=== PATIENT | female | born 1970 | race Caucasian/White ===

== ENCOUNTER → 2016-10-25 | Outpatient (CLI) | payer OTHER ==
[~2016-10-25] VITALS: Ht 154.9 cm; Wt 68.4 kg
[~2016-10-25] MED LIST: AMITRIPTYLINE H10 M1 PO; B-12250 MCG PO; CYCLOBENZAPRINE5 MG PO; CYMBALTA30 MG PO; DILAUDID 2 MG TA2 MG PO; DILAUDID2 M1 PO; GABAPENTIN100 MG PO; HYDROCODON-ACE1 EAC7 PO; HYDROCODON-ACE1 EACH PO; HYDROCODONE-AP1 EAC6 PO; IBUPROFEN 400400 M2 PO; MELOXICAM7.5 MG; MORPHINE SULFAT15 M3 PO; MULTIVITAMINS PO; NABUMETONE 750750 M1 PO; NEURONTIN 300300 M1 PO; NEURONTIN 300M300 M2 PO; NEURONTIN 400400 M1 PO; NEURONTIN600 MG PO; NORCO 5-325 TA1 EACH PO; TEGRETOL XR100 MG PO; TEGRETOL200 MG PO; TRAMADOL 50 MG50 MG PO; TRILEPTAL150 MG PO; TUMS PO; ZYRTEC10 M2 PO
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
[2016-10-25 09:25] VITALS: BP 121/59
== END ==
LOC: PAIN 06:48
DX: M54.16 Radiculopathy, lumbar region (principal); G03.9 Meningitis, unspecified

== ENCOUNTER → 2017-10-20 | Outpatient (CLI) | payer OTHER ==
[~2017-10-20] VITALS: Ht 154.9 cm; Wt 60.3 kg
[~2017-10-20] MED LIST changes: +LIPITOR10 MG PO; +METFORMIN HCL500 MG PO
--- NOTE | ~2017-10-20 | HPC ---
[facility] [place] [address] [address] [address] PAIN MANAGEMENT CONSULTATION Name: ANITA DIMAS [id number] Admission: 10/20/17 Attend Phys: Preston Casey DO Discharge: Date of : 66 Report #: [id number] THIS REPORT FOR: //name// CC: Yamil Casey DATE OF SERVICE: 10/20/2017 PAIN CLINIC NOTE HISTORY OF PRESENT ILLNESS: The patient is a very pleasant 47-year-old female, long treated for symptomatic lumbar radiculopathy status post decompressive laminectomy and neuropathic pain requiring complex medication management. She has spinal cord stimulator implanted in June 2011 which has helped with ongoing neuropathic pain. Gabapentin 600 mg 1 in the morning, half at noon, 1.5 at night, hydrocodone very rare use 5 mg tablets, dispensed 40, last visit on 09/09/2017, she still has several of these. We have always been cautious with the opiate analgesics due to history of ethanol abuse. She returns to pain clinic today noting she has had acute exacerbation of pain in the low back, right buttock, leg radiating to the groin and upper thigh. She denies antecedent trauma and overuse. She rates her pain at 6 presently and rates her pain up to a 10 on a VAS, exacerbated with walking, standing and sitting. PHYSICAL EXAMINATION: Shows a pleasant 47-year-old female, BMI is 25.1 kilograms per meter squared. Vital signs are stable. Markedly antalgic gait. Right Achilles reflex is absent, left is 1/4, patellar reflexes are symmetric. Grossly positive straight leg raise at 30 degrees on the right. Slight decreased plantar flexion. Decreased right hip flexion strength and right dorsiflexion strength. Passive rotation of the hip is unremarkable. MRI from 2010 prior to a spinal cord stimulator implant, but after last back surgery had noted recurrent disk at L5-S1 and prior partial laminectomy. ASSESSMENT: Symptomatic lumbar radiculopathy by clinical exam and history what appears to be an acute right L2-L3 radicular pain pattern. RECOMMENDATION: Lumbar epidural injection under fluoroscopy, right midline L2-L3. Will seek authorization for same. The patient has failed conservative therapy, she has taken ibuprofen 600 mg for 6 weeks. She has continued with water aerobics on a regular basis with no change in current pain. <ELECTRONICALLY SIGNED> By: Preston Casey DO 10/24/17 0710 [id number] Preston Casey DO /nt
[2017-10-20 12:43] VITALS: BP 108/81
== END ==
LOC: PAIN 06:56
DX: M54.16 Radiculopathy, lumbar region (principal); M54.5 Low back pain

== ENCOUNTER → 2017-10-27 | Outpatient (CLI) | payer OTHER ==
[~2017-10-27] VITALS: Ht 154.9 cm; Wt 60.8 kg
--- NOTE | ~2017-10-27 | HPC ---
[address] [address] PAIN MANAGEMENT CONSULTATION Name: ANITA DIMAS Room #: REG [facility].#: [id number] Admission: 10/27/17 Attend Phys: Preston Casey DO Discharge: Date of : 66 Report #: [id number] THIS REPORT FOR: //name// CC: Yamil Casey DATE OF SERVICE: 10/27/2017 The patient is a very pleasant 47-year-old female, prior seen in the pain clinic 10/20/2017. She had extensive lumbar decompression L3-L4 and L4-L5. She had ongoing right L2-L3 radicular pain pattern. Last visit on 10/20/2017, we sought authorization for epidural injection. The patient does have a spinal cord stimulator, implanted 2011. Returns to pain clinic for prior authorized epidural injection. She notes her subjective pain score is 8 on a VAS. Pain is in the low back, right anterior thigh. ASSESSMENT: Symptomatic lumbar radiculopathy status post decompression. PROCEDURE: Midline epidural steroid injection under fluoroscopy. PROCEDURE NOTE: After both written and informed consent to include risk of spinal cord damage, increased pain, weakness and dural puncture, the patient was taken to the fluoroscopy suite, placed in the prone position. After sterile prep and drape, a skin wheal with lidocaine was raised. A 22-gauge epidural Tuohy needle was inserted in the midline at L2-L3 with good loss to resistance. Negative aspiration for cerebrospinal fluid or blood was noted. Then 1 mL of Omnipaque under biplanar fluoroscopy showed good spread within the epidural space. This was followed with 80 mg of triamcinolone plus 1 mL of 1.5% preservative-free Xylocaine, 0.5 mL Xylocaine was then injected to flush the needle; it was removed. The patient was monitored for an appropriate period of time and discharged in good and stable condition. I have taken the liberty of writing for CT of the lumbar spine to be obtained next week if she does not get adequate relief with today's injection. Discharged in good and stable condition. <ELECTRONICALLY SIGNED> By: Preston Casey DO 10/28/17 0822 [id number] Preston Casey DO /nt
[2017-10-27 09:51] VITALS: BP 90/69
== END | disposition home or self-care (01) ==
LOC: PAIN 06:53
DX: M54.16 Radiculopathy, lumbar region (principal); G89.29 Other chronic pain; Z98.890 Other specified postprocedural states; Z79.899 Other long term (current) drug therapy; Z88.8 Allergy status to other drugs, medicaments and biological substances

== ENCOUNTER → 2017-11-03 | Outpatient (CLI) | payer OTHER ==
[~2017-11-03] VITALS: Ht 154.9 cm; Wt 59.4 kg
--- NOTE | ~2017-11-03 | HPC ---
[facility] [place] [address] [place] [address] PAIN MANAGEMENT CONSULTATION Name: ANITA DIMAS Room #: REG [facility] N[place]#: [id number] Admission: 11/03/17 Attend Phys: Preston Casey DO Discharge: Date of : 66 Report #: [id number] THIS REPORT FOR: //name// CC: Yamil Casey DATE OF SERVICE: 11/03/2017 The patient is a very pleasant 47-year-old female, prior seen in pain clinic 10/27/2017. We did a midline epidural injection at L2-L3 with good, yet transient improvement of symptoms. I ordered a CT scan of the lumbar spine, which was accomplished. Reviewed this today. The CT was accomplished 10/31/2017 (the patient has a spinal cord stimulator, hence MRI is contraindicated). CT does note L4-L5 to have a right foraminal and extraforaminal disk bulging resulting in narrowing of the anterior right neural foramen approaching the anterior surface of the exiting L4 nerve root. Symptoms are in a classic right L4 pattern. L5-S1 does note prior surgical changes of the right laminotomy. There is some mild annular disk bulging at this level as well. Incidentally noted is a left foraminal to extraforaminal osteophyte resulting in moderate foraminal narrowing. The left L5 nerve root; however, symptoms are contralateral i.e., right L4 radicular. The patient returns to pain clinic today noting pain continues to be problematic 11/15, interferes with function, position of comfort is standing. She really is unable to participate in many activities of daily living. PHYSICAL EXAMINATION: Otherwise unchanged from prior visit. A 47-year-old female, BMI is 24.8 kilograms per meter squared. Blood pressure is modestly elevated at 137/91, pulse 101, respirations 16. Alert and oriented to person, place and time, judged to be a reasonable historian. Gait is antalgic. Grossly positive straight leg raise on the right, decreased right hip flexion, lower extremity extension strength. Right patellar reflex diminished compared to the left. Skin integument is otherwise intact. ASSESSMENT: Symptomatic lumbar radiculopathy by clinical exam and history, status post decompressive laminectomy with neuropathic pain component. RECOMMENDATIONS: 1. Continue gabapentin 600 mg 3 a day, rare use of hydrocodone 5/325. 2. We will seek authorization for right L4-L5 transforaminal epidural injection to help with acute radicular pain. Continue spinal cord stimulator use. If symptoms do not morgan with transforaminal targeted epidural injection (right L4-L5), may consider reconsult to Dr. Hoang Chase for further evaluation. The patient is loathe to move forward with surgical revision, but understands this [address] [address] PAIN MANAGEMENT CONSULTATION Name: ANITA DIMAS Room #: REG PAULY Ar[place]#: [id number] Admission: 11/03/17 Attend Phys: Preston Casey DO Discharge: Date of : 66 Report #: [id number] and unfortunately may be indicated if we cannot quiet symptoms down presently. The patient was discharged in good and stable condition after moderately prolonged visit. We spent from 9:30-9:55 with the patient today. <ELECTRONICALLY SIGNED> By: Preston Casey DO 11/04/17 0654 [id number] [id number] Preston Casey DO /nt
[2017-11-03 09:27] VITALS: BP 137/91
== END ==
LOC: PAIN 07:20
DX: M54.16 Radiculopathy, lumbar region (principal)

== ENCOUNTER → 2018-02-21 | Outpatient (CLI) | payer OTHER ==
[~2018-02-21] VITALS: Ht 154.9 cm; Wt 62.1 kg
[~2018-02-21] MED LIST changes: +ROBAXIN 750 MG750 M1 PO
--- NOTE | ~2018-02-21 | HPC ---
[facility] [address] [place] [address] PAIN MANAGEMENT CONSULTATION Name: ANITA DIMAS Room #: REG [facility].#: [id number] Admission: 02/21/18 Attend Phys: Kin Casey DO Discharge: Date of : 66 Report #: [id number] THIS REPORT FOR: //name// CC: Marisol Friedman DATE OF SERVICE: 02/21/2018 REFERRING PHYSICIAN: OSCAR Rodriguez. CHIEF COMPLAINT: Low back pain and right lower extremity pain with paresthesias. HISTORY OF PRESENT ILLNESS: As you know, the patient is a 47-year-old female who reports a longstanding low back pain, right lower extremity pain with paresthesias. The patient recently sought evaluation with Neurosurgery who referred the patient back to trial next in the series of epidural injections. The patient was advised she has changes in the lumbar spine, but they do not appear to be surgical in origin. She has been referred back to our clinic to try an epidural injection under fluoroscopic guidance to determine if this would be beneficial. The patient indicates she received no benefit with the previous 2 epidural injections. She indicates pain today at level of 8/10, states her pain is aching, burning, stabbing in sensation; exacerbated with sitting, walking and standing and improves with medications and lying down. She has been referred back to our clinic by Neurosurgery to trial epidural injection under fluoroscopic guidance. ALLERGIES: NITROFURANTOIN. CURRENT MEDICATIONS: Methocarbamol 750 mg 3 times a day; tramadol 50 mg every 6 hours p.r.n. for pain; gabapentin 600 mg morning, 300 mg at noon and 900 mg at night; hydrocodone/acetaminophen 5/325 one tab every 6 hours p.r.n. for severe pain; metformin 500 mg once a day; atorvastatin 10 mg per day and cetirizine 10 mg per day. SOCIAL HISTORY: The patient reports she is a nonsmoker. She denies IV or illicit drug use. Denies any chronic alcohol use. 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 She is unaccompanied today. IMAGING DATA: There is new imaging available, which shows mild changes at the L4-L5 level with a mild disk bulge. PHYSICAL EXAMINATION: VITAL SIGNS: Blood pressure 123/77, pulse 95 and respiratory rate 14 and unlabored. The patient is 97% on room air. Height 5 feet 1 inch tall, weight [facility] [address] [place] [address] PAIN MANAGEMENT CONSULTATION Name: ANITA DIMAS Room #: REG [facility]#: [id number] Admission: 02/21/18 Attend Phys: Kin Casey DO Discharge: Date of : 66 Report #: [id number] 137 pounds and BMI calculated 25.9. GENERAL: Well-developed, well-nourished, well-hydrated 47-year-old female appearing her stated age. She is in no acute distress, awake, alert and oriented x 3. Current pain score is 8/10. HEENT: Normocephalic and atraumatic. Pupils equal, round and reactive to light. Extraocular muscles are intact. EXTREMITIES: Show no clubbing, no cyanosis and no edema. MUSCULOSKELETAL: Seated straight leg raising negative. Supine straight leg raising positive on the right. Claudia's test negative. Modified Gaenslen's positive for axial low back pain. Ankle clonus negative. Babinski is negative. Gait antalgic favoring right lower extremity over left. ASSESSMENT: 1. Lumbar radiculopathy. 2. Mildly displaced lumbar intervertebral disk with radiculopathy. 3. Lumbosacral spondylosis with radiculopathy. 4. Lumbar degeneration. 5. Chronic intractable pain. PLAN: 1. The patient returns today in followup visit for further request of her neurosurgery team to discuss the possibility of undergoing a lumbar epidural injection under fluoroscopic guidance. As you are aware, the patient has had lumbar epidural injections in the past, the most recent 2 injections provided no benefit for the patient. She subsequently sought evaluation through Neurosurgery who advised the patient at this point, she does not have a surgical amenable process and was referred back to our clinic to trial an epidural injection. The patient returns today with pain level of 8/10. We have been requested by the neurosurgery team to provide an epidural injection. The patient was advised that third democr[employer] payer restrictions require that authorization be obtained. Before she could undergo an epidural injection, an authorization could take anywhere from 4-7 working days. We will begin this process immediately and contact the patient if we are able to receive authorization. 2. We would recommend some changes in the patient's medication management. At present, she is taking gabapentin 600 mg in the morning, 300 mg at noon and 900 mg at night. She is denying any side effects with medication but is also denying any improvement in symptoms. Recommend escalating the dose as follows. 3. The patient will increase her gabapentin from 600 mg morning, 300 mg at noon and 900 mg at night to 900 mg in the morning, 300 mg at noon and 900 mg at night for 3 days; then 900 mg morning, 300 mg at noon and 1200 mg at night for 3 days; then 1200 mg in the morning, 300 mg at noon and 1200 mg at night for 3 nights and then escalating the noon dose every 3 days until reaching either efficacy or 1200 mg 3 times a day. The patient was given a prescription of gabapentin 300 mg tablets 4 tabs 3 times a day with #360, no refills. 4. The patient will return to our clinic once we have achieved authorization [address] [address] PAIN MANAGEMENT CONSULTATION Name: ANITA DIMAS Room #: REG [facility] Nury#: [id number] Admission: 02/21/18 Attend Phys: Kin Casey DO Discharge: Date of : 66 Report #: [id number] for the patient to undergo epidural injection. If she wishes to do so, we will begin this process and contact the patient once we have achieved this authorization. <ELECTRONICALLY SIGNED> By: Kin Casey DO 02/22/18 1059 1422 [id number] Kin Casey DO /nt
[2018-02-21 09:50] VITALS: BP 123/77
== END ==
LOC: PAIN 06:53
DX: M47.27 Other spondylosis with radiculopathy, lumbosacral region (principal); M51.16 Intervertebral disc disorders with radiculopathy, lumbar region; G89.4 Chronic pain syndrome; Z79.899 Other long term (current) drug therapy

== ENCOUNTER → 2019-10-25 | Outpatient (CLI) | payer OTHER ==
[~2019-10-25] VITALS: Ht 154.9 cm; Wt 63.6 kg
[2019-10-25 11:19] VITALS: BP 123/76
--- NOTE | 2019-10-25 11:23 | NUR ---
Pain Clinic Assessment: 1. History of Osteoarthritis: Not Applicable History of Rheumatoid Arthritis: Not Applicable 2. Height: 5 ft. 1 in. 154.9 cm. Weight: 140.2 lb. oz. 63.594 kg. Patient's BMI: 26.5 3. Vital Signs: BP: 123/76 Pulse: 72 Resp: 16 Temp: 02 Sat: 99 ECG Mon: 4. Pain Intensity: 5-6 5. Fall Risk: Dizziness: N Needs help standing or walking: N Fallen in the last 3 months: Y Fall risk comments: 6. Patient on Blood Thinner: None 7. History of Hypertension: N 8. Opioid Therapy greater than 6 weeks: N Opiate Contract Signed: 9. Risk Assessment Tool Provided: 1-LOW 10. Functional Assessment Tool: 11. Recreational Drug Use: Never Drug Type: Tobacco Use: Never Smoker Tobacco Type: Amount or Packs/day: How Many Years: Alcohol Use: No Frequency: Quant:
--- NOTE | 2019-10-26 09:07 | HPC ---
[facility] [address] [place] [address] PAIN MANAGEMENT CONSULTATION Name: ANITA DIMAS Room #: REG PAULY Zapata.#: [id number] Admission: 10/25/19 Attend Phys: Felicita Longoria Discharge: Date of : 66 Report #: [id number] THIS REPORT FOR: cc: Yamil Friedman MD, Kevin R. MD Hocker,Felicita ACOSTA ~ CC: Kin Casey DO DATE OF SERVICE: 10/25/2019 CHIEF COMPLAINT: Low back pain, right lower extremity pain and paresthesias. HISTORY OF PRESENT ILLNESS: This is a very pleasant 49-year-old female who returns to the pain clinic for a refill of her gabapentin that she uses to help treat her ongoing low back pain and right lower extremity pain. She does report that the gabapentin is very beneficial in helping control her pain as well as exercise. She has been unable to use a pool to walk, which she finds the most beneficial in reducing her pain along with her medications. Since the COVID outbreak, she has been trying to walk outside, but does have difficulty going up hills, which [place] neighborhood [place]. She states that she does take occasionally a hydrocodone, but it does make her drowsy, so she takes these very sparingly. Today, she complains her pain is a 5-6/10 in her right buttock, groin and thigh and it is an aching, burning pain, worse with prolonged sitting and walking and changes in the weather. She states that this spring has been difficult with increase rain, has caused her to have increased pain. Today, she would like a refill of the gabapentin and hydrocodone. ALLERGIES: NITROFURANTOIN. CURRENT LIST OF MEDICATIONS: Gabapentin 600 mg b.i.d., hydrocodone p.r.n., metformin, atorvastatin, Zyrtec. PQRS: 1. She denies any rheumatoid or osteoarthritis. 2. Height is 5 feet 2 inches, Weight is 140, BMI is 26. 3. Vital signs 123/76, pulse is 72, respirations 16, oxygen sat is 99. 4. Pain score is 5-6. 5. Denies dizziness, does not need help walking or standing, has fallen in the last 3 months, but not injured herself. 6. The patient is not on any blood thinners or hypertension medicines. 7. Opiate therapy is greater than 6 weeks. She takes these very sparingly, averaging 2-3 a month. 8. Risk assessment tool is low. Functional assessment is 36/70. 9. Recreational drug use, she denies. She does not smoke and does not drink alcohol. [address] [address] PAIN MANAGEMENT CONSULTATION Name: ANITA DIMAS Room #: REG [facility] Nury#: [id number] Admission: 10/25/19 Attend Phys: Felicita Longoria Discharge: Date of : 66 Report #: [id number] We did check the prescription monitoring system, the patient fills her hydrocodone very sparingly. We did see her last year and with that script the pharmacy only provided her 14 pills. I encouraged the patient to use the GoodRx script to see if she will be allowed the 60 tablets that we prescribe for her. She does take these very sparingly, but has been on these for quite some time. We understand that the CDC guidelines and insurance purposes, they believe she is opiate naive, 60 tablets generally last her over one year. PHYSICAL EXAMINATION: GENERAL: This is a well-developed, well-nourished, well-hydrated 49-year-old female who appears her stated age, placing her current pain score at 5-6/10 today. HEENT: Normocephalic, atraumatic. Pupils equal, round and reactive. She is wearing a mask. EXTREMITIES: No clubbing, no cyanosis, no edema. MUSCULOSKELETAL: Modified [place] is positive for axial low back pain. Gait is antalgic favoring her right lower extremity over her left. Seated straight leg raising is negative. She has decreased strength in her right leg, over her right, she has diffuse tenderness across her low back. ASSESSMENT: 1. Symptomatic lumbar radiculopathy, status post decompressive laminectomy. 2. 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 3. Lumbar spondylosis with radiculopathy. 4. Lumbar degeneration. 5. Chronic intractable pain. PLAN: 1. We discussed treatment options with the patient today. We will continue her on her gabapentin, which she finds very beneficial, allowing her 600 mg twice a day, quantity 180 with 3 additional fills. This is a total of 1 month. 2. We discussed the hydrocodone. The patient does take this sparingly and only uses it when she is in extreme pain. We had Dr. Kin Casey send , #60 to the pharmacy and given her the GoodRx card. We told the pharmacist that she can use this card instead of her insurance or pay ha. It seems to be that it would be $20; therefore, she will be able to fill the entire prescription instead of the short 7-day supply that they had given her last year. 3. The patient will return in one year as needed. We did explain to her that if her primary care doctor may write these medicines, she may go there if she pleases, but she states she would rather come here once a year. 4. The patient is seen today in collaboration with Dr. Kin Casey. <ELECTRONICALLY SIGNED> By: Felicita Longoria 10/26/19 [id number] Felicita Longoria /nt
== END ==
LOC: PAIN 07:59
PROVIDERS: ATTEND Clinical Nurse Specialist Adult Health
DX: M47.26 Other spondylosis with radiculopathy, lumbar region (principal); G89.29 Other chronic pain; M51.16 Intervertebral disc disorders with radiculopathy, lumbar region; R20.2 Paresthesia of skin; M79.604 Pain in right leg; Z88.8 Allergy status to other drugs, medicaments and biological substances; Z79.899 Other long term (current) drug therapy

== ENCOUNTER → 2020-01-29 | Outpatient (CLI) | payer OTHER ==
[~2020-01-29] VITALS: Ht 154.9 cm; Wt 63.4 kg
--- NOTE | ~2020-01-29 | HPC ---
[facility] [address] PAIN MANAGEMENT CONSULTATION Name: ANITA DIMAS Room #: REG PAULY SarmientoLeoDominick.#: [id number] Admission: 01/29/20 Attend Phys: Kin Casey DO Discharge: Date of : 66 Report #: [id number] THIS REPORT FOR: cc: Yamil Friedman MD, Kevin R. MD Johnson, James E. DO ~ CC: Kin Friedman DATE OF SERVICE: 01/29/2020 REFERRING PHYSICIAN: Hoang Chase MD CHIEF COMPLAINT: Low back pain, lower extremity pain with paresthesias. HISTORY OF PRESENT ILLNESS: As you know, the patient is a 49-year-old female who was last seen in our clinic on 10/25/2019, where she received refill of medications. She states her pain has begun to intensify. She has tried epidural injections in the past, but has noted no benefit. She did report good efficacy with gabapentin and is currently taking 600 mg 3 times a day, but has lost its effect. She returns today in followup visit to discuss options for treatment. She is considering surgical options if her symptoms do not improve. She is denying new injury, trauma or any changes in medical history since our last visit. ALLERGIES: NITROFURANTOIN. CURRENT MEDICATIONS: Hydrocodone/acetaminophen 5/325 one tab b.i.d. p.r.n. pain, gabapentin 600 mg 3 times a day, metformin 500 mg twice a day, atorvastatin 10 mg once a day, cetirizine 10 mg once a day. SOCIAL HISTORY: The patient reports she is a nonsmoker. Denies IV or illicit drug use. Admits to no use of long-term alcohol. She is unaccompanied at today's visit. IMAGING: No new imaging available. PHYSICAL EXAMINATION: VITAL SIGNS: Blood pressure 115/87, pulse 85, respiratory rate 16 and unlabored. The patient is 97% on room air. Height 5 feet 1 inch tall, weight 139.8 pounds, BMI calculated 26.4. GENERAL: Well-developed, well-nourished, well-hydrated 49-year-old female, appearing stated age. Pain is rated today around 8/10. HEENT: Normocephalic, atraumatic. Pupils equal, round and reactive. Speech is fluent for patient. [address] [address] PAIN MANAGEMENT CONSULTATION Name: ANITA DIMAS Room #: REG [facility] Nury#: [id number] Admission: 01/29/20 Attend Phys: Kin Casey DO Discharge: Date of : 66 Report #: [id number] EXTREMITIES: Show no clubbing, no cyanosis. No appreciable edema. MUSCULOSKELETAL: Lower extremity strength appears symmetrical 5/5 except for hip extension on the right, which appears mildly weakened. Diffuse tenderness is noted with palpation over the lumbar spine. Gait remains antalgic favoring left lower extremity over right. Muscle bulk and tone does not appear asymmetrical. There is no noted loss in deep tendon reflexes and no clonus. ASSESSMENT: 1. Symptomatic lumbar radiculopathy. 2. 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 3. Lumbar spondylosis with radiculopathy. 4. Lumbar degeneration. 5. Chronic intractable pain. PLAN: 1. The patient has returned today in followup visit indicating that her gabapentin has begun to lose effect. She is considering possible surgical options at this point. She is concerned that her increasing pain may be due to progressively worsening lumbar issues. She was advised that sometime in the past that she would likely need to look towards more surgical options. 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 She discontinued the use of the spinal cord stimulator and within an hour to hour and a half, she noted increasing pain, which does show that the cord stimulator is providing some benefit. She has restarted this device. She returns today in followup visit to discuss treatment options. She denies no injury, trauma or any changes in medical history since our last visit. 2. The patient should increase her gabapentin. She is currently taking 600 mg 3 times a day and was reporting in October that she was receiving good benefit. I recommend increasing the gabapentin in the following manner in hopes of regaining pain improvement. The following titration was provided to the patient to initiate increase in medication. The patient will start taking 600 mg in the morning, 600 mg at noon and 900 mg at night for the next 3 nights, then if no improvement in symptoms, no side effects of sleepiness, disorientation, confusion, mental slowing, then increase to 600 mg in the morning, 600 mg at noon and 1200 mg at night for 3 nights. If no improvement in symptoms, no side effects, then continue ____ of the medication every 3 days, reaching 1200 mg 3 times a day. I did provide the patient with a prescription of gabapentin 300 to utilize with her current prescription of 600 mg to escalate the dose more to an efficacious level. The patient's prescription was sent via e-scribe to local pharmacy. 3. The patient has requested a reimaging of the lumbar spine. Given the fact that she has spinal cord stimulating leads from 2011, we would not recommend MRI as these leads are not MRI compatible. We will send the patient for CT examination. I do understand that her pulse generator was recently changed 2 years ago, which is likely MRI compatible, but the leads themselves are not and [facility] [address] [place] [address] PAIN MANAGEMENT CONSULTATION Name: ANITA DIMAS Room #: REG PAULY Jodi.#: [id number] Admission: 01/29/20 Attend Phys: Kin Casey DO Discharge: Date of : 66 Report #: [id number] examination will be obtained. The patient will undergo CT examination. We will review those findings once they are available. She will also gain a copy of the imaging study in digital form to take to her appointment with Neurosurgery. 4. The patient is going to contact her nurse practitioner at [facility] to be seen to discuss surgical options. We do not have the CT examination at this time, so I cannot advise the patient whether or not this would be beneficial. She will be following up with Neurosurgery in regards to this issue. 5. The patient and I did discuss the possibility of increasing her hydrocodone for a short period of time to determine if this can be beneficial. She is currently taking 5/325 twice a day. We recommend increasing by half to one tab ____ very short period of time and determine if it is effective. If it is, then we can discuss the possibility of increasing that medication for any potential analgesic benefit. I did advise the patient that the neuropathic pain rarely responds to opioid medication, though, she may see some analgesic benefit with its use. 6. Recommend that the patient continues to utilize the spinal cord stimulator as it is providing benefit. Further adjustments in the therapy may be necessary to cover her current symptoms with reprogramming of the device, though, we will defer to the patient and her [employer] device sales representative aircraft to do these adjustments. 7. We will see the patient back in followup visit once we have the CT examination and review those findings. By: 0950 1155 Kin Casey DO /nt
[2020-01-29 08:44] VITALS: BP 115/87
--- NOTE | 2020-01-29 09:01 | NUR ---
Pain Clinic Assessment: 1. History of Osteoarthritis: Not Applicable History of Rheumatoid Arthritis: Not Applicable 2. Height: 5 ft. 1 in. 154.9 cm. Weight: 139.8 lb. oz. 63.413 kg. Patient's BMI: 26.4 3. Vital Signs: BP: 115/87 Pulse: 85 Resp: 16 Temp: 02 Sat: 97 ECG Mon: 4. Pain Intensity: 8 5. Fall Risk: Dizziness: N Needs help standing or walking: N Fallen in the last 3 months: N Fall risk comments: 6. Patient on Blood Thinner: None 7. History of Hypertension: N 8. Opioid Therapy greater than 6 weeks: N Opiate Contract Signed: 9. Risk Assessment Tool Provided: 1-LOW 10. Functional Assessment Tool: / 11. Recreational Drug Use: Never Drug Type: Tobacco Use: Never Smoker Tobacco Type: Amount or Packs/day: How Many Years: Alcohol Use: No Frequency: Quant:
== END ==
LOC: PAIN 06:53
PROVIDERS: ATTEND Anesthesiology Pain Medicine
DX: M47.26 Other spondylosis with radiculopathy, lumbar region (principal); G89.29 Other chronic pain; M51.36 Other intervertebral disc degeneration, lumbar region; G62.9 Polyneuropathy, unspecified; Z88.8 Allergy status to other drugs, medicaments and biological substances; Z79.899 Other long term (current) drug therapy

== ENCOUNTER → 2020-04-15 | Outpatient (CLI) | payer OTHER ==
[~2020-04-15] VITALS: Ht 154.9 cm; Wt 66.7 kg
[~2020-04-15] MED LIST changes: +MELOXICAM15 MG PO; +NORTRIPTYLINE H25 M3 PO
[2020-04-15 10:31] VITALS: BP 130/81
--- NOTE | 2020-04-16 12:34 | HPC ---
[facility] [address] [place] [address] PAIN MANAGEMENT CONSULTATION Name: ANITA DIMAS Room #: REG PAULY GuerreroDominickLeo#: [id number] Admission: 04/15/20 Attend Phys: Kin Casey DO Discharge: Date of : 66 Report #: [id number] THIS REPORT FOR: cc: Yamil Friedman MD, Kevin R. MD Johnson, James E. DO ~ DATE OF SERVICE: 04/15/2020 REFERRING PHYSICIAN: Hoang Chase MD CHIEF COMPLAINT: Low back pain, lower extremity pain with paresthesias. HISTORY OF PRESENT ILLNESS: As you know, the patient is a 49-year-old female with longstanding history of low back pain, lower extremity pain with paresthesias. The patient was initially seen in our clinic by my partner, Dr. Preston Casey in 03/2011. She has been treated with epidural injections and medication management since that time. She had plans for possible surgical intervention with Dr. Chase when it came to our attention that her insurance had a relaxed and there was no insurance coverage. She reports that she will not have any insurance coverage for the next 6 months. She returns today in followup visit reporting that recent adjustments in medication management did not provide much in the way of improvement. She is placing pain score at 10/10. She describes the pain more as an aching, burning, stabbing and constant sensation, exacerbated with sitting, walking, standing, lying down. She was started on hydrocodone at the last visit, but this has provided no benefit. She has noted that the dose of meloxicam that she took over the past 7 days from an old prescription had been working well and wishes to discuss the possibility of starting this therapy. She denies injury or trauma that may have led to symptom reoccurrence. There have been no changes in her medical history since our last visit, which would preclude altering treatment at this point. ALLERGIES: NITROFURANTOIN. CURRENT MEDICATIONS: Hydrocodone/acetaminophen 5/325 one tab p.o. b.i.d. p.r.n., gabapentin 600 mg t.i.d., metformin 500 mg b.i.d., atorvastatin 10 mg per day, cetirizine 10 mg once a day, meloxicam 15 mg once a day. SOCIAL HISTORY: The patient reports herself as a nonsmoker. Denies IV or illicit drug use. Admits to no long-term alcohol use. She is unaccompanied today. IMAGING: No new imaging available. PHYSICAL EXAMINATION: VITAL SIGNS: Blood pressure 130/81, pulse 94, respiratory rate [address] [address] PAIN MANAGEMENT CONSULTATION Name: ANITA DIMAS Room #: [facility].#: [id number] Admission: 04/15/20 Attend Phys: Kin Casey DO Discharge: Date of : 66 Report #: [id number] unlabored. The patient is 98% on room air. Height 5 feet 1 inch tall, weight 147 pounds, BMI calculated 27.8. GENERAL: Well-developed, well-nourished, well-hydrated 49-year-old female, appearing stated age, pain is rated today 10/10. HEENT: Normocephalic, atraumatic. NEUROLOGIC: Speech is fluent. The patient deemed a fair historian. EXTREMITIES: Show no clubbing, no appreciable edema. MUSCULOSKELETAL: Equal and symmetrical lower extremity strength is noted today except for hip extension on the right, which again appears moderately weekend as previous exams indicate. Gait remains mildly antalgic favoring right lower extremity over left. Seated straight leg raising is mildly positive. Supine straight leg raising positive. Claudia's test is negative. ASSESSMENT: 1. Symptomatic lumbar radiculopathy. 2. 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 3. Lumbosacral spondylosis with radiculopathy. 4. Lumbar degeneration. 5. Chronic intractable pain. PLAN: 1. The patient returns today in followup visit to discuss ongoing pain issues. She states her pain has intensified of late. She was given hydrocodone at a prior visit, but apparently this provided no benefit. This would indicate that the pain generator that she is experiencing is not opioid responsive and no further opioids would be recommended. We do believe that her symptoms are related more to her lumbar radiculopathy and myelopathic findings causing nerve pain, which should be addressed with neuropathic medications. She has a spinal cord stimulator in place, but apparently this is providing no benefit. She returns to discuss options for treatment and adjustments in therapy. 2. We have agreed to start the patient on meloxicam. Apparently, she had an old dosing of medication 15 mg she was taking at night. We recommend 7.5 mg b.i.d. as a more effective treatment course. We have provided her with 15 mg tablets for which she will score the medication to take 7.5 mg morning and 7.5 mg at dinner time. This will provide a better baseline control of symptoms. She was given #30 tablets with 2 refills, 3 months' worth of medication. The patient was advised to watch for dyspepsia, worsening of blood pressure, lower extremity edema with its use. If she notes any of these, discontinue immediately. 3. The patient will continue on gabapentin. She is taking 600 mg 3 times a day, but cannot escalate the dose further. Apparently escalating doses led to decrease in mentation and some somnolence. The patient was unwilling to trade for any analgesic benefit. We recommend she continue on current dosing. She was provided a prescription of gabapentin 300 mg tabs for which she takes 2 tabs twice a day or a total of 600 mg b.i.d. I have given the patient #180 tablets, which is a 3-month prescription. [address] [address] PAIN MANAGEMENT CONSULTATION Name: ANITA DIMAS Room #: REG [facility]#: [id number] Admission: 04/15/20 Attend Phys: Kin Casey DO Discharge: Date of : 66 Report #: [id number] 4. The patient will be started on nortriptyline for neuropathic pain control. We will start at 25 mg dose. Continue for 7 nights, then increase to 50 mg p.o. at bedtime. Continue for another 7 nights, then increase to 75 mg. The patient was advised to watch for side effects of this medication including sleepiness, disorientation, confusion, mental slowing. If she notes any side effects, reduce to the dose prior, contact our clinic. Prescription was provided to the patient via E-prescription to a local pharmacy. 5. The patient will need to follow up with Dr. Chase in regards to surgical options. I do understand the patient is currently in a situation where her insurance is not covering treatment other than according to the patient, covering medications. Once the patient has obtained insurance, she will need to follow up with Dr. Chase in regards to surgical options. We are hopeful that we can continue to provide analgesic benefit as we await that surgery. We will see her back in 3 months. <ELECTRONICALLY SIGNED> By: Kin Casey DO 04/16/20 [id number] Kin Casey DO /nt
== END ==
LOC: PAIN 06:50
PROVIDERS: ATTEND Anesthesiology Pain Medicine
DX: M47.27 Other spondylosis with radiculopathy, lumbosacral region (principal); G89.4 Chronic pain syndrome; Z79.891 Long term (current) use of opiate analgesic; Z79.899 Other long term (current) drug therapy

== ENCOUNTER → 2021-01-13 | Outpatient (CLI) | payer OTHER, BC ==
[~2021-01-13] VITALS: Ht 154.9 cm; Wt 66.0 kg
[2021-01-13 10:09] VITALS: BP 132/79
--- NOTE | 2021-01-13 10:17 | NUR ---
Pain Clinic Assessment: 1. History of Osteoarthritis: Not Applicable History of Rheumatoid Arthritis: Not Applicable 2. Height: 5 ft. 1 in. 154.9 cm. Weight: 145.6 lb. oz. 66.044 kg. Patient's BMI: 27.5 3. Vital Signs: BP: 132/79 Pulse: 96 Resp: 16 Temp: 02 Sat: 98 ECG Mon: 4. Pain Intensity: 18 5. Fall Risk: Dizziness: N Needs help standing or walking: N Fallen in the last 3 months: N Fall risk comments: 6. Patient on Blood Thinner: None 7. History of Hypertension: N 8. Opioid Therapy greater than 6 weeks: N Opiate Contract Signed: 9. Risk Assessment Tool Provided: 1-LOW 10. Functional Assessment Tool: / 11. Recreational Drug Use: Never Drug Type: Tobacco Use: Never Smoker Tobacco Type: Amount or Packs/day: How Many Years: Alcohol Use: No Frequency: Quant:
--- NOTE | 2021-01-13 13:36 | HPC ---
[facility] [place] [address] PAIN MANAGEMENT CONSULTATION Name: ANITA DIMAS Room #: REG PAULY ZapataLeo#: [id number] Admission: 01/13/21 Attend Phys: Kin Casey DO Discharge: Date of : 66 Report #: [id number] THIS REPORT FOR: cc: Yamil Friedman MD,Kin Sauer MD, DO ~ cc: Yamil Friedman MD, Hoang Chase MD DATE OF SERVICE: 01/13/2021 CHIEF COMPLAINT: Low back pain, left lower extremity pain with paresthesias. HISTORY OF PRESENT ILLNESS: As you know, the patient is a 50-year-old female with longstanding history of chronic low back pain, lower extremity pain with paresthesias. She was seen in our clinic 03/2011 by my partner, Dr. Preston Casey, who treated the patient with epidural injections and medication management. She has undergone surgery to address chronic radicular issues, but has been left with continued pain. She has recently undergone a CT myelogram, which shows neural foraminal stenosis that will have to be addressed surgically, but they wish to trial conservative treatment prior to that surgical procedure. She has been referred back to our clinic by her neurosurgery team to trial epidural injections or adjustments in medication management. The patient has been trialing gabapentin, escalating dose to 3600 mg per day, noticing no improvement in symptoms, but side effects of sleepiness, disorientation, and confusion. She has reduced her gabapentin with resolution of symptoms, but no pain improvement. We trialed the patient on duloxetine. She took 30 mg for 3 days and stated that the side effects are too great and could not continue. The patient returns today to discuss interventional treatment options. The patient is placing her current pain at a 8/10. She reports that she suffered no injury, no trauma that has led to symptom development. She recently underwent CT myelogram with neurosurgery to discuss surgical options including the necessity of the foraminotomy. She returns today to discuss interventional treatment options. ALLERGIES: NITROFURANTOIN. CURRENT MEDICATIONS: Hydrocodone/acetaminophen 5/325 one tab p.o. b.i.d. p.r.n. pain, gabapentin 300 mg t.i.d., metformin 500 mg b.i.d., atorvastatin 10 mg once a day, cetirizine 10 mg once a day, meloxicam 15 mg once a day. SOCIAL HISTORY: The patient reports herself a nonsmoker. Denies IV or illicit drug use. Admits to no long-term alcohol use. She is unaccompanied today. IMAGING: No new imaging available. PQRS: The patient has known arthritic changes of the lumbar spine. No rheumatoid arthritis, placing current pain score at 8/10, not a fall risk, has [address] [address] PAIN MANAGEMENT CONSULTATION Name: ANITA DIMAS Room #: REG [facility].#: [id number] Admission: 01/13/21 Attend Phys: Kin Casey DO Discharge: Date of : 66 Report #: [id number] not had a fall in last 3 months. She is not on blood thinners and is not treated for hypertension, though she does take medications for dyslipidemia. She is on chronic opioids, has a low opioid addiction potential. Pain impact is 67/70, near complete interference of daily activities secondary to pain. PHYSICAL EXAMINATION: VITAL SIGNS: Blood pressure 132/79, pulse 96, respiratory rate 16 and unlabored. The patient is 98% on room air. Height 5 foot 1 inch tall, weight 145.6 pounds, BMI calculated 27.5. GENERAL: A well-developed, well-nourished, well-hydrated 50-year-old female appearing stated age, pain is rated today at 8/10. HEENT: Normocephalic, atraumatic. Pupils equal, round and responsive. EXTREMITIES: Show no clubbing, no cyanosis and no appreciable edema. MUSCULOSKELETAL: Lower extremity strength is symmetrical 5/5. Muscle bulk and tone equal and symmetrical. Hip extension is the only exception, which shows moderate weakness. Gait remains mildly antalgic, favoring right lower extremity. Seated straight leg raising is negative. Supine straight leg raising is positive. Fabere's test is negative. Babinski's are downgoing. Ankle clonus is negative. ASSESSMENT: 1. Symptomatic lumbar radiculopathy. 2. Neuropathic pain secondary myelopathic cord injury. 3. Neural foraminal stenosis of lumbar spine. 4. Lumbosacral spondylosis with radiculopathy. 5. Lumbar degeneration. 6. Chronic intractable pain. PLAN: 1. The patient returns today in followup visit having continuation of pain. She places pain at 8/10. She has sought evaluation through neurosurgery, who referred the patient back to trial interventional treatments. She has made today's appointment to possibly undergo lumbar epidural injection. Recent CT myelogram showed foraminal stenosis that will have to be ultimately addressed with surgery at the L5-S1 level consistent with the patient's current distribution of symptoms, though they are hopeful that a more conservative treatment options would be of benefit. We have tried two different neuropathic medications, both of which have that side effects and no improvement in analgesic benefit. We had discussed in the past the option of undergoing an epidural injection. She returns to undergo the procedure today. 2. The patient was advised risks and benefits of a lumbar epidural injection. These risks include but are not necessarily limited to bleeding, bruising, infection, worsening pain, no relief of pain, also risk of temporary or permanent muscle weakness, temporary or permanent nerve damage, possible paralysis, and . The patient states understood and wished to proceed. 3. No medication changes made at today's visit. The patient will continue [address] [address] PAIN MANAGEMENT CONSULTATION Name: ALLEY DIMASYanira Bey Room #: [facility]#: [id number] Admission: 01/13/21 Attend Phys: Kin Casey DO Discharge: Date of : 66 Report #: [id number] current medical therapy as prior prescribed. 4. We plan to see the patient back in followup visit on an as needed basis for the next in the series of lumbar epidural injections. PROCEDURE NOTE DESCRIPTION OF PROCEDURE: L5-S1 parasagittal epidural steroid injection under fluoroscopic guidance. After obtaining written consent, the patient was taken back to fluoroscopy suite, placed in prone position with pillow under abdomen to decrease lumbar lordosis. Skin overlying lumbosacral area then prepped and draped in aseptic fashion. Lumbar intervertebral spaces, identified by AP fluoroscopy. Skin and subcutaneous tissue overlying target site injection anesthetized with 3 mL 1% lidocaine. A 20 gauge 3-1/2 inch Tuohy needle advanced under fluoroscopic guidance towards the epidural space using a parasagittal approach. Epidural space identified using loss of resistance to air technique. After negative aspiration for heme or cerebrospinal fluid, 1 mL of Omnipaque injected. Lumbar epidurogram was confirmed using both AP and lateral fluoroscopy. After negative aspiration for heme or cerebrospinal fluid, 5 mL solution containing 2 mL 40 mg per mL 80 mg total triamcinolone along with 3 mL of lidocaine, 1% injected slowly. Needle retracted skilled nursing flushed with 1 mL of 1% lidocaine and removed. Sterile bandage placed over injection site. No new motor deficits present in lower extremity following procedure. The patient tolerated the procedure well, carefully escorted to recovery room in stable condition. No apparent complications. After meeting discharge criteria, the patient discharged home. <ELECTRONICALLY SIGNED> By: Kin Casey DO 01/13/21 1336 [id number] 1115 Kin Casey DO /nt
== END | disposition home or self-care (01) ==
LOC: PAIN 12-24 14:19
PROVIDERS: ATTEND Anesthesiology Pain Medicine
DX: M51.16 Intervertebral disc disorders with radiculopathy, lumbar region (principal); M48.061 Spinal stenosis, lumbar region without neurogenic claudication; M47.27 Other spondylosis with radiculopathy, lumbosacral region; G89.29 Other chronic pain; M19.90 Unspecified osteoarthritis, unspecified site; Z98.890 Other specified postprocedural states; Z79.899 Other long term (current) drug therapy

== ENCOUNTER → 2021-02-10 | Outpatient (CLI) | payer OTHER, BC ==
[~2021-02-10] VITALS: Ht 154.9 cm; Wt 65.8 kg
[2021-02-10 10:14] VITALS: BP 127/70
--- NOTE | 2021-02-10 10:19 | NUR ---
Pain Clinic Assessment: 1. History of Osteoarthritis: Not Applicable History of Rheumatoid Arthritis: Not Applicable 2. Height: 5 ft. 1 in. 154.9 cm. Weight: 145.0 lb. oz. 65.772 kg. Patient's BMI: 27.4 3. Vital Signs: BP: 127/70 Pulse: 87 Resp: 18 Temp: 02 Sat: 97 ECG Mon: 4. Pain Intensity: 7-8 5. Fall Risk: Dizziness: N Needs help standing or walking: N Fallen in the last 3 months: N Fall risk comments: 6. Patient on Blood Thinner: None 7. History of Hypertension: N 8. Opioid Therapy greater than 6 weeks: N Opiate Contract Signed: 9. Risk Assessment Tool Provided: 1-LOW 10. Functional Assessment Tool: 11. Recreational Drug Use: Never Drug Type: Tobacco Use: Never Smoker Tobacco Type: Amount or Packs/day: How Many Years: Alcohol Use: No Frequency: Quant:
--- NOTE | 2021-02-10 15:04 | HPC ---
[facility] [place] [address] PAIN MANAGEMENT CONSULTATION Name: ANITA DIMAS Room #: REG PAULY SarmientoLeoDominickLeo#: [id number] Admission: 02/10/21 Attend Phys: Kin Casey DO Discharge: Date of : 66 Report #: [id number] THIS REPORT FOR: cc: Yamil Friedman MD, Kevin R. MD Johnson, James E. DO ~ cc: Hoang Chase DATE OF SERVICE: 02/10/2021 REFERRING PHYSICIAN: Dr. Hoang Chase CHIEF COMPLAINT: Low back pain, left posterolateral thigh pain. HISTORY OF PRESENT ILLNESS: As you know, the patient is a 50-year-old female with longstanding history of chronic low back pain, lower extremity pain with paresthesias. The patient has been followed by [facility] for an extended period of time for ongoing issues. Today, she returns reporting pain beginning in the lower back, upper buttock area, radiating to the posterolateral thigh, consistent with SI joint as the possible source. She underwent an epidural injection at last visit per the request of her Neurosurgery Team, which only provided transient improvement in symptoms, no long-term benefit. She returns today in followup visit requesting refills of her meloxicam and gabapentin and also discuss treatment options for this recurrent low back, left buttock, and posterolateral thigh pain. The patient denies injury or trauma that may led to symptom reoccurrence. She has had no changes in her medication management to date that would preclude her from looking towards injection therapies if deemed necessary. ALLERGIES: NITROFURANTOIN. CURRENT MEDICATIONS: Hydrocodone/acetaminophen 5/325 one tab p.o. q. 12 hours p.r.n. for pain, gabapentin 600 mg b.i.d., metformin 500 mg b.i.d., atorvastatin 10 mg once a day, cetirizine 10 mg once a day, meloxicam 15 mg once a day. SOCIAL HISTORY: The patient reports herself a nonsmoker. Denies IV or illicit drug use. Admits to no long-term alcohol use. She is unaccompanied at today's visit. IMAGING: No new imaging available. PQRS: The patient has known arthritic changes of lumbar spine and mildly in the bilateral hips. No rheumatoid arthritis. She has not had a fall in last 3 months and has not at risk of fall. She does have a drop foot on the left, but has learned gait changes and so falls are minimized. She is not on blood thinners and is not treated for hypertension. She does take medication for dyslipidemia. She is on chronic opioids and has a low opioid addiction [address] [address] PAIN MANAGEMENT CONSULTATION Name: ALLEY DIMASY Sotero Room #: REG CLJeff Arrington#: [id number] Admission: 02/10/21 Attend Phys: Kin Casey DO Discharge: Date of : 66 Report #: [id number] potential based on her pain. On our assessment tool, pain impact remains high at 65/70 near complete interference of daily activities secondary to pain. PHYSICAL EXAMINATION: VITAL SIGNS: Blood pressure 127/70, pulse 87, respiratory rate 18 and unlabored. The patient is 97% on room air. Height 5 feet 1 inch tall, weight 145 pounds, BMI calculated 27.4. GENERAL: A well-developed, well-nourished, well-hydrated 50-year-old female appearing stated age, pain is rated anywhere from 7 and 8/10. HEENT: Normocephalic, atraumatic. Pupils equal, round and responsive. She is wearing a mask in compliance with COVID-19 regulations. EXTREMITIES: Show no clubbing, no cyanosis, no edema. MUSCULOSKELETAL: Lower extremity strength equal and symmetrical 5/5. Muscle bulk and tone is symmetrical when comparing lower extremities. Pain is elicited with movement of the right hip and pelvic area. Palpatory tenderness is noted over the SI joint on the right, negative left. The patient had difficulties staying seated on the right side versus on the left. Lumbar provocation testing is met with axial back pain. No radiation of symptoms. Thigh thrust maneuver is positive on the right, negative left. Dimas's test is positive on the right, negative left. Claudia's test is positive on the right, negative left. ASSESSMENT: 1. Right sacroiliac joint pain. 2. Right sacroiliac joint dysfunction. 3. Chronic lumbar radiculopathy. 4. 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 5. Neural foraminal stenosis of lumbar spine. 6. Lumbosacral spondylosis with radiculopathy. 7. Lumbar degeneration. 8. Chronic intractable pain. PLAN: 1. The patient returns today in followup visit reporting pain directly over the low back and upper buttock area on the right. Deep palpation in area causes intensification of pain. It does appear the patient is suffering from SI joint dysfunction and pain from the area. We discussed with the patient treatment options for SI joint dysfunction today. The following was discussed with the patient. We discussed physical therapy, stretching exercises and manipulation of the pelvis and sacroiliac joint. We discussed suggestions and medication management to treat symptoms. We discussed intra-articular SI joint injections and ultimate fusion of the SI joint, which could be beneficial. After reviewing the risks and benefits of all proposed treatment options, the patient chose to consider those options further. She is considering a possible intra-articular SI joint injection, but wishes to delay a couple of weeks to determine if her [facility] [address] [place] [address] PAIN MANAGEMENT CONSULTATION Name: ALLEY DIMASY Sotero Room #: REG [facility].#: [id number] Admission: 02/10/21 Attend Phys: Kin Casey DO Discharge: Date of : 66 Report #: [id number] symptoms will improve spontaneously. 2. The patient will be continued on meloxicam. I gave her 15 mg tablet. She is to take 1 tab p.o. at bedtime. She was given prescription today with multiple refills. 3. The patient was provided refill prescription of gabapentin 600 mg b.i.d. She was given #180. A 3-month prescription with refills. 4. We plan to see the patient back in followup visit to discuss SI joint injection under fluoroscopic guidance. We will see her back p.r.n. <ELECTRONICALLY SIGNED> By: Kin Casey DO 02/10/21 1504 1131 1246 Kin Casey DO /nt
== END ==
LOC: PAIN 06:52
PROVIDERS: ATTEND Anesthesiology Pain Medicine
DX: M47.27 Other spondylosis with radiculopathy, lumbosacral region (principal); G89.4 Chronic pain syndrome; Z79.899 Other long term (current) drug therapy; Z79.891 Long term (current) use of opiate analgesic

== ENCOUNTER → 2021-02-17 | Outpatient (CLI) | payer OTHER, BC ==
[~2021-02-17] VITALS: Ht 154.9 cm; Wt 66.0 kg
[2021-02-17 09:12] VITALS: BP 139/92
--- NOTE | 2021-02-17 09:19 | NUR ---
Pain Clinic Assessment: 1. History of Osteoarthritis: Not Applicable History of Rheumatoid Arthritis: Not Applicable 2. Height: 5 ft. 1 in. 154.9 cm. Weight: 145.4 lb. oz. 65.953 kg. Patient's BMI: 27.5 3. Vital Signs: BP: 139/92 Pulse: 96 Resp: 18 Temp: 02 Sat: 97 ECG Mon: 4. Pain Intensity: 8 5. Fall Risk: Dizziness: N Needs help standing or walking: N Fallen in the last 3 months: Y Fall risk comments: 6. Patient on Blood Thinner: None 7. History of Hypertension: N 8. Opioid Therapy greater than 6 weeks: N Opiate Contract Signed: 9. Risk Assessment Tool Provided: 1-LOW 10. Functional Assessment Tool: / 11. Recreational Drug Use: Never Drug Type: Tobacco Use: Never Smoker Tobacco Type: Amount or Packs/day: How Many Years: Alcohol Use: No Frequency: Quant:
--- NOTE | 2021-02-18 08:04 | HPC ---
[facility] [address] [place] [address] PAIN MANAGEMENT CONSULTATION Name: ANITA DIMAS Room #: REG PAULY Zapata.#: [id number] Admission: 02/17/21 Attend Phys: Kin Casey DO Discharge: Date of : 66 Report #: [id number] THIS REPORT FOR: cc: Yamil Friedman MD, Kevin R. MD Johnson, James E. DO ~ cc: Hoang Chase MD DATE OF SERVICE: 02/17/2021 REFERRING PHYSICIAN: Dr. Hoang Chase. CHIEF COMPLAINT: Right low back and buttock pain, posterolateral thigh pain. HISTORY OF PRESENT ILLNESS: As you know, the patient is a 50-year-old female who has been experiencing ongoing low back pain, right lower extremity pain for years. She has trialled different treatment options with minimal benefit. She continues to take oral medications for pain control for which she finds some improvement in symptoms. She has been referred back to our clinic as she was experiencing continued right upper buttock and posterolateral thigh pain, which was concerning for SI joint dysfunction. She was made today's appointment to trial an SI joint injection under fluoroscopic guidance to address 8/10 pain. She is denying any injury or trauma. She describes pain as starting in the right upper buttock area radiating to the lateral leg. Describes the pain more as a heaviness and an achy sensation, exacerbated with standing, walking and sitting and improved with repositioning. She returns today for a right sacroiliac joint injection under fluoroscopic guidance. ALLERGIES: NITROFURANTOIN. CURRENT MEDICATIONS: Gabapentin, meloxicam, metformin, atorvastatin, cetirizine. SOCIAL HISTORY: The patient denies tobacco, alcohol or IV or illicit drug use. IMAGING: No new imaging available. PQRS: The patient has known arthritic changes of lumbar spine, bilateral hips. No rheumatoid arthritis. She is not a fall risk, has not had a fall in last 3 months. She does report pain score at 8/10. She is not on blood thinners nor is she treated for hypertension. She is on no opioid medications. She has a low opioid addiction potential based on assessment tool. Pain impact is 67/70, severe near complete interference of daily activities secondary to pain. PHYSICAL EXAMINATION: VITAL SIGNS: Blood pressure 139/92, pulse is 96, respiratory rate 18 and unlabored. The patient 97% on room air. Height 5 feet 1 inch tall, weight [facility] [address] [place] [address] PAIN MANAGEMENT CONSULTATION Name: ANITA DIMAS [facility] [id number] Admission: 02/17/21 Attend Phys: Kin Casey DO Discharge: Date of : 66 Report #: [id number] 145.4 pounds, BMI calculated 27.5. GENERAL: A well-developed, well-nourished, well-hydrated 50-year-old female appearing stated age, pain is rated today at 8/10. HEENT: Normocephalic, atraumatic. Pupils are round and responsive. She is wearing a mask in compliance with COVID-19 regulations. EXTREMITIES: Show no clubbing, no cyanosis, no edema. MUSCULOSKELETAL: Lower extremity strength equal and symmetrical 5/5. Muscle bulk and tone is symmetrical when comparing lower extremities. Well-healed surgical scar over the lumbar region, palpatory tenderness is noted over the right sacroiliac joint. Pressure on the area causes intensification of pain. Thigh thrust maneuver is positive on the right, negative left. Dimas's is once again positive on the right, negative on the left. Claudia test is positive on the right, negative left. ASSESSMENT: 1. Right sacroiliac joint pain. 2. Right sacroiliac joint dysfunction. 3. Chronic lumbar radiculopathy. 4. 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 5. Neural foraminal stenosis of lumbar spine. 6. Lumbosacral spondylosis with radiculopathy. 7. Lumbar degeneration. 8. Chronic intractable pain. PLAN: 1. The patient returns today in followup visit to undergo right sacroiliac joint injection under fluoroscopic guidance as part of the diagnostic/therapeutic process of trying to determine the source of current symptoms. The patient has been advised of the risks and the benefits of a right sacroiliac joint injection today. These risks include but are not necessarily limited to bleeding, bruising, infection, worsening pain, no relief of pain, also risk of temporary or permanent muscle weakness, temporary or permanent nerve damage, possible paralysis, and . The patient states she understood and wished to proceed. 2. No medication changes made at today's visit. The patient will continue current medical therapy as prior prescribed. 3. Plan to see the patient back in followup visit on an as needed basis for the next in the series of SI joint injections. PROCEDURE NOTE: DESCRIPTION OF PROCEDURE: Right sacroiliac joint injection under fluoroscopic guidance. This is the first procedure of the first series that the patient is undergoing. [address] [address] PAIN MANAGEMENT CONSULTATION Name: ANITA DIMAS [facility] [id number] Admission: 02/17/21 Attend Phys: Kin Casey DO Discharge: Date of : 66 Report #: [id number] After obtaining written consent, the patient was taken back to the fluoroscopy suite and placed in a prone position with a pillow under the pelvis to decrease the lumbar lordosis. The skin of the gluteal-sacral area overlying the right sacroiliac joint was prepped and draped in an aseptic fashion. A medial to lateral oblique projection allowed separation of the anterior and posterior branches of the joint space. The skin and subcutaneous tissue overlying the target site of injection was anesthetized using 3 mL of 1% lidocaine. A 22-gauge 3-1/2-inch needle with a bent tip was directed into the inferior aspect of the sacroiliac joint using a posterior approach. A giving way at the needle hub was noted once the dorsal sacroiliac and interosseous ligaments were engaged. After negative aspiration for heme, a total of 0.5 mL of Omnipaque was injected, outlining the coin-shaped inferior recess of the joint. Provocation responses consisting of intense buttock pain were negative. After negative aspiration for heme, 3 mL of a solution containing 1 mL 40 mg per mL, 40 mg total triamcinolone along with 2 mL of bupivacaine 0.5% was slowly injected. The needle was then retracted approximately long term and the needle track was flushed with 1 mL of 1% lidocaine. Needle was then removed. A sterile bandage was placed over the injection site. There were no new sensory deficits present in the lower extremities. The heart rate, pulse oximetry and blood pressure were continuously monitored after the procedure. There were no apparent complications. The patient tolerated the procedure well and was carefully escorted to the recovery room in stable condition. The VAS was 8/10 before the procedure and 5/10 ten minutes after the procedure. After meeting discharge criteria, the patient was discharged home. <ELECTRONICALLY SIGNED> By: Kin Casey DO 02/18/21 0804 [id number] 1238 Kin Casey DO /nt
== END | disposition home or self-care (01) ==
LOC: PAIN 06:50
PROVIDERS: ATTEND Anesthesiology Pain Medicine
DX: M53.3 Sacrococcygeal disorders, not elsewhere classified (principal); M51.16 Intervertebral disc disorders with radiculopathy, lumbar region; M47.27 Other spondylosis with radiculopathy, lumbosacral region; M48.061 Spinal stenosis, lumbar region without neurogenic claudication; G89.29 Other chronic pain; M19.90 Unspecified osteoarthritis, unspecified site; Z98.890 Other specified postprocedural states; Z79.899 Other long term (current) drug therapy; Z88.8 Allergy status to other drugs, medicaments and biological substances